=== PATIENT | male | born 1955 | race African-American/Black ===

== ENCOUNTER 2024-01-25 10:11 | Emergency (ER) | payer BC ==
[~2024-01-25] VITALS: Ht 182.9 cm; Wt 113.6 kg
[2024-01-25 10:40] VITALS: TEMP 97.1
[2024-01-25 10:41] LABS: BASO % 0.2 % (0.0-1.0); EOS # 0.1 10^3/uL (0.0-0.5); EOS % 0.8 % (0.0-3.0); HEMATOCRIT 39.9 % (42.0-52.0); LYMPH # 3.1 10^3/uL (1.5-5.0); LYMPH % 19.7 % (24.0-44.0); MEAN CORPUSCULAR HGB CONC 32.6 g/dl (32.0-36.5); MEAN CORPUSCULAR VOLUME 95.2 fl (80.0-96.0); MONO # 1.5 10^3/uL (0.0-0.8); MONO % 9.5 % (2.0-8.0); NEUTROPHILS % 69.5 % (36.0-66.0); PLATELET COUNT, AUTOMATED 182 10^3/uL (150-450); RED BLOOD COUNT 4.19 10^6/uL (4.30-6.10); WHITE BLOOD COUNT 15.8 10^3/uL (4.0-10.0)
[2024-01-25 11:13] LABS: BLOOD UREA NITROGEN 14 MG/DL (9-23); CALCIUM LEVEL 8.6 MG/DL (8.3-10.6); CARBON DIOXIDE LEVEL 22 MMOL/L (20-31); CHLORIDE LEVEL 111 MMOL/L (98-107); CREATININE FOR GFR 1.04 MG/DL (0.70-1.30); GLOMERULAR FILTRATION RATE > 60.0 (>49); GLUCOSE, FASTING 113 MG/DL (74-106); SODIUM LEVEL 143 MMOL/L (136-145)
[2024-01-25 11:15] LABS: THYROID STIMULATING HORMONE 3.244 uIU/ML (0.55-4.78)
[2024-01-25 11:46] LABS: ETHYL ALCOHOL (ETHANOL) < 0.003 % (0.000-0.010)
[2024-01-25 11:47] LABS: SALICYLATE LEVEL < 3.0 MG/DL (<30)
[2024-01-25 11:48] LABS: ALBUMIN 3.6 G/DL (3.2-5.2); ALKALINE PHOSPHATASE 70 U/L (46-116); ALT/SGPT 19 U/L (7.0-40); AST/SGOT 18 U/L (<34); BILIRUBIN,DIRECT 0.1 MG/DL (<0.4); BILIRUBIN,TOTAL 0.4 MG/DL (0.3-1.2); CK-MB VALUE MASS 3.2 NG/ML (<3.6); TOTAL PROTEIN 6.3 G/DL (5.7-8.2)
[2024-01-25 11:51] LABS: CPK CREATINE PHOSPHOKINASE 231 U/L (46-171); MB/CK RELATIVE INDEX 1.38 (< OR =4); URIC ACID 8.5 MG/DL (3.7-9.2)
[2024-01-25 11:55] LABS: OSMOLALITY SERUM 300 MOSM/KG (280-301)
[2024-01-25 14:00] VITALS: BP 148/75; O2SAT 98
[2024-01-25] MEDS ORDERED: NAPR-837 PO (14:27)
== END 2024-01-25 14:35 | disposition home or self-care (01) ==
LOC: M ED 10:11
DX: R55 Syncope and collapse (principal); S00.81XA Abrasion of other part of head, initial encounter; M18.11 Unilateral primary osteoarthritis of first carpometacarpal joint, right hand; M25.78 Osteophyte, vertebrae; M47.892 Other spondylosis, cervical region; E07.89 Other specified disorders of thyroid; I49.3 Ventricular premature depolarization; R00.1 Bradycardia, unspecified; I45.9 Conduction disorder, unspecified; I10 Essential (primary) hypertension; M10.9 Gout, unspecified; Y92.9 Unspecified place or not applicable; Y93.9 Activity, unspecified; Y99.9 Unspecified external cause status; Z79.1 Long term (current) use of non-steroidal anti-inflammatories (NSAID)